=== PATIENT | female | born 1940 | race Caucasian/White ===

== ENCOUNTER 2016-12-21 15:02 | Emergency (ER) | payer MEDICARE ==
[2016-12-21 15:53] VITALS: BP 140/62
--- NOTE | 2016-12-21 16:20 | UC ---
Skin Complaint HPI - HPI Summary HPI Summary: Pt presents with c/o insect bites to lower extremities. Denies, pruritis, blistering or worsening of condition. Pt is concerned that she was bit by ticks and was exposed to lyme disease. Denies fever, chills, flu like symptoms or visible tick. - History of Current Complaint Chief Complaint: [facility] Time Seen by Provider: 12/21/16 15:39 Stated Complaint: SKIN COMPLAINT (BITES) Hx Obtained From: Patient ?: No Onset/Duration: Gradual Onset Skin Exposure Onset/Duration: Weeks Ago - 2 Timing: Constant Onset Severity: Mild Current Severity: Mild Pain Intensity: 0 Pain Scale Used: 0-10 Numeric Location: Discrete - bilateral lower extremities Aggravating: Nothing Alleviating: Unknown Associated Signs & Symptoms: Positive: Rash Related History: Insect Bite/Sting - Allergy/Home Medications Allergies/Adverse Reactions: Allergies Allergy/AdvReac Type Severity Reaction Status Date / Time Amoxicillin Allergy Rash Verified 12/21/16 15:53 Penicillins Allergy Hives Verified 12/21/16 15:53 Review of Systems Constitutional: Negative Skin: Other - insect bites Eyes: Negative ENT: Negative Respiratory: Negative Cardiovascular: Negative Gastrointestinal: Negative Genitourinary: Negative Motor: Negative Neurovascular: Negative Musculoskeletal: Negative Neurological: Negative Psychological: Negative All Other Systems Reviewed And Are Negative: Yes PMH/Surg Hx/FS Hx/Imm Hx Previously Healthy: Yes - Surgical History Surgical History: Yes Surgery Procedure, Year, and Place: LT ANKLE SURGERY. LT WRIST SURGERY. LT KNEE CAP SURGERY. RT SHOULDER RCT - Family History Known Family History: Positive: Other - arthritis - Social History Occupation: Retired Lives: With Family Alcohol Use: None Substance Use Type: None Smoking Status (MU): Never Smoked Tobacco Have You Smoked in the Last Year: No - Immunization History Most Recent Influenza Vaccination: february 2015 Physical Exam Triage Information Reviewed: Yes Appearance: Well-Appearing Vital Signs: Initial Vital Signs Temp 98.5 F 12/21/16 15:50 Pulse 71 12/21/16 15:50 Resp 14 12/21/16 15:50 BP 140/62 12/21/16 15:50 Pulse Ox 100 12/21/16 15:50 Eye Exam: Normal ENT Exam: Normal Dental Exam: Normal Neck exam: Normal Respiratory Exam: Normal Cardiovascular Exam: Normal Musculoskeletal Exam: Normal Musculoskeletal: Positive: Other: - left knee, anterior post surgical scar Neurological Exam: Normal Psychological Exam: Normal Skin Exam: Other - scattered healing pin prick mild erythematous areas bilateral lower extremities in various stages of healing. left posterior mid leg, small, circular erythematous dime size area NO central clearing, ecchymosis Course/Dx - Differential Diagnoses - Skin Complaint Differential Diagnoses: Cellulitis, Local Allergic Reaction, Other - insect bites - Diagnoses Provider Diagnoses: insect bites. local allergic reaction Discharge - Discharge Plan Condition: Stable Disposition: HOME Patient Education Materials: Insect Bite or Sting (ED) Referrals: Essie Galarza MD [Primary Care Provider] - Additional Instructions: Please follow up with your pCP or return to clinic as needed. Please keep your skin, clean, well hydrated and monitor for any worsening symptoms.
== END 2016-12-21 16:08 | disposition home or self-care (01) ==
LOC: UCCORT 15:02
DX: S80.862A Insect bite (nonvenomous), left lower leg, initial encounter (principal); S80.861A Insect bite (nonvenomous), right lower leg, initial encounter; W57.XXXA Bitten or stung by nonvenomous insect and other nonvenomous arthropods, initial encounter; Y93.9 Activity, unspecified; Y92.9 Unspecified place or not applicable; Z88.0 Allergy status to penicillin
CPT/HCPCS: 99211; G0463